=== PATIENT | female | born 1960 | race Hispanic/Latino ===

== ENCOUNTER 2017-12-17 12:14 | Emergency (ER) | payer BC ==
[2017-12-17 12:14] VITALS: BMI 28.2
[2017-12-17 12:34] VITALS: RESP 18; TEMP 97.9; O2SAT 97
[2017-12-17] MEDS ORDERED: Sodium Chloride 0.9% 1,000 ML IV STA (12:46)
[2017-12-17] MEDS ORDERED: DiphenhydrAMINE 50 mg/ml Inj IVP STA (12:46)
--- NOTE | 2017-12-17 13:48 | ED PDOC ---
Arrival/HPI - General Chief Complaint: Headache Time Seen by Provider: 12/17/17 12:44 Historian: Patient - History of Present Illness Narrative History of Present Illness (Text): 12/17/17 13:47 A 57 year old female, whose past medical history includes chronic migraine, 2 mm cerebral aneurysm, presents to the emergency department complaining of neck pain and right sided headache. Patient follows up with Dr. Bond and headache physician with Dr. Paz (in [facility]), who she saw yesterday for a deep tissue massage, and after, neck pain began radiating to the right side of head, phonophobia, photophobia, no focal neurological deficits or rashes. Patient denies any rash or any other complaints at this time.Pt states that the headasche was gradual onset , 12/17/17 15:54 Time/Duration: Other (yesterday) Symptom Onset: Sudden Symptom Course: Unchanged Activities at Onset: Rest Past Medical History - Provider Review Nursing Documentation Reviewed: Yes - Infectious Disease Hx of Infectious Diseases: None - Tetanus Immunization Tetanus Immunization: Unknown - Neurological HX Cerebrovascular Accident: Yes Other/Comment: aneurysm 2mm - Renal Other/Comment: solitary kidney - Endocrine/Metabolic Hx Hypothyroidism: Yes - Gastrointestinal Hx Gastroesophageal Reflux: Yes (barrets esoph treated with by pass) - Psychiatric Hx Depression: No Hx Emotional Abuse: No Hx Physical Abuse: No Hx Substance Use: No - Surgical History Hx Cholecystectomy: Yes Hx Gastric Bypass Surgery: Yes Hx Hysterectomy: Yes Hx Orthopedic Surgery: Yes (knee) Other/Comment: gastric bypass. nephrectomy. cyst removal. torn meniscus - Anesthesia Hx Anesthesia: Yes Hx Anesthesia Reactions: No Hx Malignant Hyperthermia: No - Suicidal Assessment Feels Threatened In Home Enviroment: No Family/Social History - Physician Review Nursing Documentation Reviewed: Yes Family/Social History: No Known Family HX Smoking Status: Never Smoked Hx Alcohol Use: No Hx Substance Use: No Hx Substance Use Treatment: No Allergies/Home Meds Allergies/Adverse Reactions: Allergies codeine Allergy (Verified 12/17/17 12:18) SWELLING Penicillins Allergy (Verified 12/17/17 12:18) RASH Home Medications: Home Meds Medication Instructions Recorded Confirmed Clopidogrel [Plavix] 1 tab PO DAILY 12/17/17 12/17/17 Levothyroxine [Synthroid] 1 tab PO DAILY 12/17/17 12/17/17 Review of Systems - Physician Review All systems were reviewed & negative as marked: Yes - Review of Systems Eyes: Photophobia Musculoskeletal: Neck Pain Skin: absent: Rash Neurological: Headache (right sided) Psychiatric: Other (phonophobia) Physical Exam Vital Signs Reviewed: Yes Vital Signs Temp Pulse Resp BP Pulse Ox 12/17/17 14:37 74 18 138/86 97 12/17/17 12:34 97.9 F 77 18 141/95 H 97 Temperature: Afebrile Blood Pressure: Hypertensive Pulse: Regular Respiratory Rate: Normal Appearance: Positive for: Well-Appearing, Non-Toxic, Comfortable Pain Distress: None Mental Status: Positive for: Alert and Oriented X 3 - Systems Exam Head: Present: Atraumatic, Normocephalic Pupils: Present: PERRL Extroacular Muscles: Present: EOMI Conjunctiva: Present: Normal Mouth: Present: Moist Mucous Membranes Neck: Present: Normal Range of Motion Respiratory/Chest: Present: Clear to Auscultation, Good Air Exchange. No: Respiratory Distress, Accessory Muscle Use Cardiovascular: Present: Regular Rate and Rhythm, Normal S1, S2. No: Murmurs Abdomen: Present: Normal Bowel Sounds. No: Tenderness, Distention, Peritoneal Signs Back: Present: Normal Inspection Upper Extremity: Present: Normal Inspection. No: Cyanosis, Edema Lower Extremity: Present: Normal Inspection. No: Edema Neurological: Present: GCS=15, CN II-XII Intact, Speech Normal Skin: Present: Warm, Dry, Normal Color. No: Rashes Psychiatric: Present: Alert, Oriented x 3, Normal Insight, Normal Concentration Medical Decision Making ED Course and Treatment: 12/17/17 13:45 Impression: A 57 year old female with neck pain, right sided headache, photophobia and phonophobia. Plan: -- Tylenol, Decadron, Benadryl, Reglan, IV fluids -- Reassess and disposition Prior Visits: Notes and results from previous visits were reviewed. Patient was last seen in the emergency department on 03/07/14 for evaluation of headache, photophobia and phonophobia. Progress Notes: - Medication Orders Current Medication Orders: Discontinued Medications Acetaminophen (Tylenol 325mg Tab) 650 mg PO STAT STA Stop: 12/17/17 12:47 Last Admin: 12/17/17 13:22 Dose: 650 mg MAR Pain/Vitals Document 12/17/17 13:22 RG (Rec: 12/17/17 13:22 RG [id number]) Pain Reassessment Is This A Pain ReAssessment? Yes Dexamethasone (Decadron Inj) 10 mg IVP STAT STA Stop: 12/17/17 12:47 Last Admin: 12/17/17 13:32 Dose: 10 mg IVP Administration Document 12/17/17 13:32 RG (Rec: 12/17/17 15:32 RG [id number]) Charges for Administration # of IVP Administrations 1 Diphenhydramine HCl (Benadryl) 25 mg IVP STAT STA Stop: 12/17/17 12:47 Last Admin: 12/17/17 13:30 Dose: 25 mg IVP Administration Document 12/17/17 13:30 RG (Rec: 12/17/17 15:32 RG [id number]) Charges for Administration # of IVP Administrations 1 Sodium Chloride (Sodium Chloride 0.9%) 1,000 mls @ 999 mls/hr IV .Q1H1M STA Stop: 12/17/17 13:46 Last Admin: 12/17/17 13:30 Dose: 999 mls/hr eMAR Start Stop Document 12/17/17 13:30 RG (Rec: 12/17/17 15:32 RG [id number]) Intravenous Solution Start Date 12/17/17 Start Time 13:30 Metoclopramide HCl (Reglan) 20 mg IVP STAT STA Stop: 12/17/17 12:46 Last Admin: 12/17/17 13:40 Dose: 20 mg IVP Administration Document 12/17/17 13:40 RG (Rec: 12/17/17 15:32 [id number] Charges for Administration # of IVP Administrations 1 - Scribe Statement The provider has reviewed the documentation as recorded by the Rylee Klein Provider Scribe Attestation: All medical record entries made by the Scribe were at my direction and personally dictated by me. I have reviewed the chart and agree that the record accurately reflects my personal performance of the history, physical exam, medical decision making, and the department course for this patient. I have also personally directed, reviewed, and agree with the discharge instructions and disposition. Disposition/Present on Arrival - Present on Arrival Any Indicators Present on Arrival: No History of DVT/PE: No History of Uncontrolled Diabetes: No Urinary Catheter: No History of Decub. Ulcer: No History Surgical Site Infection Following: None - Disposition Have Diagnosis and Disposition been Completed?: Yes Diagnosis: Status migrainosus Disposition: HOME/ ROUTINE Disposition Time: 15:53 Patient Plan: Discharge Patient Problems: Current Active Problems Problem Status Onset Status migrainosus Acute Condition: GOOD Discharge Instructions (ExitCare): Migraine Headache (ED) Print Language: NICARAGUAN Additional Instructions: Maintain a headache diary documenting the what/where/when/how/associated factors with your headaches and then follow this up with your specialist whom will enjoy the extra diagnostic cues. Return for any worsening symptoms. Prescriptions: Acetaminophen/Butalbital/Caf [Fioricet] 1 tab PO Q8 PRN #20 tab PRN Reason: Headache Referrals: Germain Valle MD [Primary Care Provider] - Follow up with primary Forms: [employer] (Austrian)
[2017-12-17 16:10] VITALS: BP 135/78; PULSE 69
== END 2017-12-17 16:16 | disposition home or self-care (01) ==
LOC: ED 12:14
DX: G43.901 Migraine, unspecified, not intractable, with status migrainosus (principal); E03.9 Hypothyroidism, unspecified; Z86.73 Personal history of transient ischemic attack (TIA), and cerebral infarction without residual deficits; Z98.84 Bariatric surgery status
CPT/HCPCS: 96374; 96375; 99285; J1100; J1200; J2765; J7040

== ENCOUNTER 2017-12-27 11:59 | Inpatient (IN) | payer BC ==
[2017-12-27] MEDS ORDERED: Sodium Chloride 0.9% 1,000 ML IV SCH (12:45)
--- NOTE | 2017-12-27 12:45 | ED PDOC ---
Arrival/HPI - History of Present Illness Symptom Course: Intermittent Quality: Aching Context: Other (movement of head) <Seema Mcneal - Last Filed: 12/27/17 18:26> <Kedar Hill - Last Filed: 12/27/17 19:12> - General Chief Complaint: Medical Clearance Time Seen by Provider: 12/27/17 12:01 - History of Present Illness Narrative History of Present Illness (Text): 12/27/17 12:42 CC: neck pain Patient presents for admission for possible discitis. Patient states her doctor told her to come in due to MRI results done 12/26 which shows C6-C7 minimal increased signal and minimal marrow edema. Patient had a right root canal 6 weeks ago and started having right sided neck pain and currently has tenderness of C6-C7 spinal tenderness with movement. Patient denies numbness, weakness, tingling of upper and lower extremities. PMH: sinusitis (02/2017), chronic migraine, 2 mm cerebral aneurysm, presents to the emergency department complaining of neck pain and right sided headache PMD: Dr. Leonard Bond and headache physician with Dr. Paz ([facility] (Seema Mcneal) Past Medical History - Provider Review Nursing Documentation Reviewed: Yes - Infectious Disease Hx of Infectious Diseases: None - Tetanus Immunization Tetanus Immunization: Unknown - Cardiac Hx Cardiac Disorders: Yes - Pulmonary Hx Respiratory Disorders: No - Neurological Hx Neurological Disorder: Yes HX Cerebrovascular Accident: Yes Other/Comment: aneurysm 2mm - dx in November 2017. CVA in past with some minimal L sided weakness - HEENT Hx HEENT Disorder: Yes Other/Comment: glasses - Renal Hx Renal Disorder: Yes Other/Comment: R kidney only, L was removed in 2009 - Endocrine/Metabolic Hx Endocrine Disorders: Yes Hx Hypothyroidism: Yes - Hematological/Oncological Hx Blood Disorders: No - Integumentary Hx Dermatological Disorder: No - Musculoskeletal/Rheumatological Hx Musculoskeletal Disorders: Yes Other/Comment: neck pain - Gastrointestinal Hx Gastrointestinal Disorders: Yes Hx Gastroesophageal Reflux: Yes (barrets esoph treated with by pass) - Genitourinary/Gynecological Hx Genitourinary Disorders: No - Psychiatric Hx Psychophysiologic Disorder: No Hx Depression: No Hx Emotional Abuse: No Hx Physical Abuse: No Hx Substance Use: No - Surgical History Hx Cholecystectomy: Yes Hx Gastric Bypass Surgery: Yes Hx Hysterectomy: Yes Hx Orthopedic Surgery: Yes (knee) Other/Comment: gastric bypass. L kidney removed, nephrectomy. cyst removal. torn meniscus - Anesthesia Hx Anesthesia: Yes Hx Anesthesia Reactions: No Hx Malignant Hyperthermia: No - Suicidal Assessment Feels Threatened In Home Enviroment: No <Seema Mcneal - Last Filed: 12/27/17 18:26> - Provider Review Nursing Documentation Reviewed: Yes - Travel History Have you recently traveled outside [place] w/in the past 3 mons?: No <Kedar Hill - Last Filed: 12/27/17 19:12> Family/Social History - Physician Review Nursing Documentation Reviewed: Yes Smoking Status: Never Smoked Hx Alcohol Use: No Hx Substance Use: No Hx Substance Use Treatment: No <Seema Mcneal - Last Filed: 12/27/17 18:26> - Physician Review Nursing Documentation Reviewed: Yes Family/Social History: No Known Family HX <Kedar Hill - Last Filed: 12/27/17 19:12> Allergies/Home Meds <Seema Mcneal - Last Filed: 12/27/17 18:26> <Kedar Hill - Last Filed: 12/27/17 19:12> Allergies/Adverse Reactions: Allergies codeine Allergy (Verified 12/27/17 12:09) SWELLING Penicillins Allergy (Verified 12/27/17 12:09) RASH Home Medications: Home Meds Medication Instructions Recorded Confirmed Clopidogrel [Plavix] 1 tab PO DAILY 12/17/17 12/27/17 Levothyroxine [Synthroid] 1 tab PO DAILY 12/17/17 12/27/17 Lansoprazole [Prevacid] 30 mg PO BID 12/27/17 12/27/17 Review of Systems - Physician Review All systems were reviewed & negative as marked: Yes - Review of Systems Constitutional: Normal. absent: Fatigue, Weight Change Eyes: Normal. absent: Vision Changes, Photophobia ENT: Normal. absent: Hearing Changes, Tinnitus, TMJ Pain Respiratory: Normal. absent: SOB, Cough, Sputum Cardiovascular: Normal. absent: Chest Pain, Palpitations, Edema Gastrointestinal: absent: Abdominal Pain, Stool Changes, Constipation Genitourinary Female: absent: Dysuria, Frequency, Hematuria Musculoskeletal: Neck Pain. absent: Arthralgias, Back Pain, Joint Swelling Skin: absent: Rash, Pruritis, Skin Lesions Neurological: absent: Headache, Dizziness, Focal Weakness, Gait Changes, Speech Changes, Facial Droop, Disequilibrium Endocrine: absent: Diaphoresis, Polyuria, Polydipsia Hemo/Lymphatic: absent: Adenopathy, Easy Bleeding Psychiatric: absent: Anxiety, Depression, Suicidal Ideation <Eng,Seema - Last Filed: 12/27/17 18:26> Physical Exam Vital Signs Reviewed: Yes Temperature: Afebrile Blood Pressure: Normal Pulse: Regular Respiratory Rate: Normal Appearance: Positive for: Comfortable Mental Status: Positive for: Alert and Oriented X 3 - Systems Exam Head: Present: Atraumatic, Normocephalic Pupils: Present: PERRL Extroacular Muscles: Present: EOMI Conjunctiva: Present: Normal Mouth: Present: Moist Mucous Membranes Pharnyx: Present: Normal. No: ERYTHEMA, EXUDATE, Uvular Deviation, Muffled/ Hoarse Voice Nose (External): Present: Atraumatic. No: Abrasion, Contusion, Laceration Neck: Present: Normal Range of Motion, MIDLINE TENDERNESS (C6-T1), Paraspinal Tenderness (C6-T1), Trachea Midline. No: Meningeal Signs, JVD, Lymphadenopathy Respiratory/Chest: Present: Clear to Auscultation, Good Air Exchange. No: Respiratory Distress, Accessory Muscle Use Cardiovascular: Present: Regular Rate and Rhythm, Normal S1, S2. No: Murmurs Abdomen: Present: Normal Bowel Sounds. No: Tenderness, Distention, Peritoneal Signs Upper Extremity: Present: Normal Inspection, Normal ROM, Neurovascularly Intact , Capillary Refill < 2s. No: Cyanosis, Edema, Swelling, Erythema Lower Extremity: Present: Normal Inspection, NORMAL PULSES, Normal ROM, Neurovascularly Intact, Capillary Refill < 2 s. No: Edema, Tenderness Skin: Present: Warm, Dry, Normal Color. No: Rashes Lymphatic: No: Cervical Adenopathy Psychiatric: Present: Alert, Oriented x 3, Normal Insight, Normal Concentration <Eng,Seema - Last Filed: 12/27/17 18:26> Vital Signs Temp Pulse Resp BP Pulse Ox 12/27/17 17:16 98.1 F 76 18 123/63 100 12/27/17 12:42 79 18 138/74 98 12/27/17 12:10 97.9 F 88 14 142/88 98 Medical Decision Making Reassessment Condition: Unchanged - Lab Interpretations I have reviewed the lab results: Yes - EKG Interpretation Interpreted by ED Physician: Yes (86bpm @ NSR) Type: 12 lead EKG <Seema Mcneal - Last Filed: 12/27/17 18:26> <Kedar Hill - Last Filed: 12/27/17 19:12> ED Course and Treatment: CBC CMP, Mg, Ph ESR, CRP Procalcitonin VBG Shock blood cultures Tylenol for pain IVF NS @100cc/hr 12/27/17 16:[address] Valle's covering doctor on the phone at 12/27/17 04:15. Recommended blood cultures, ESR, CRP and follow up with Dr. Bond ( Neurologist) for headaches MRI shows degenerative disc changes, narrowing of C6-C7 with edema. 12/27/17 17:[address] Bond: would like to have patient stay and see a neurosurgeon because "bilateral epidural fluid collections seen on MRI without contrast and prevertebral fluid collection indicates possible abscess" and to have an MRI with contrast 12/27/17 18:25 (Seema Mcneal) 12/27/17 17:38 patient with neck pain, concerning findings from MRI wo cervical spine 12/26/17 for questionable b/l epidural fluid collections, questionable prevertebral fluid collection, it is possible these findings represent discitis, it is more likely that these findings are degenerative changes. wbc 6.3, lactic acid 1.2, INR 1.00, CRP 7.33, ESR 29, d/w initially Dr. Valle's office Dr. Cerda, but later d/w Dr. Reddy who stated no antibiotics at this time and to discuss with neurosurgery and plan MRI with iv contrast for clarification. (Dr. Hill) 12/27/17 17:44 12/27/17 18:[address] Greene neurosurgery who stated he will review the MRI wo contrast cervical spine images and make a determination and call back to the ED. 12/27/17 18:[address] Greene neurosurgery who stated no clear sign of fluid collections, likely related to degenerative disc disease, can admit to Dr. Reddy, get MRI w contrast of the cervical spine tomorrow and neurosurgical evaluation in the am. 12/27/17 19:10 d/w Dr. Reddy who stated order MRI w iv contrast c-spine now, ivf hydration, diet, admit to med-surgery and she will fu MRI spine results, neurosurgery consultation. pt stated hysterectomy and no menstrual periods, didn't want test at this time. (Keadr Hill) - Lab Interpretations Lab Results: 12/27/17 12:40 12/27/17 12:40 Lab Results 12/27/17 12:40: PT 11.5, INR 1.00, APTT 33.9 12/27/17 12:40: WBC 6.3, RBC 4.75, Hgb 13.9, Hct 42.7, MCV 89.9, MCH 29.3, MCHC 32.6, RDW 13.6, Plt Count 243, MPV 9.8, Gran % 65.2, Lymph % (Auto) 28.1, Kershaw % (Auto) 6.0, Eos % (Auto) 0.5 L, Baso % (Auto) 0.2, Gran # 4.14, Lymph # 1.8, Kershaw # 0.4, Eos # 0.0, Baso # 0.01, ESR 29 H 12/27/17 12:40: Chloride 105, Sodium 143, Potassium 4.3, Carbon Dioxide 28, Anion Gap 13, BUN 20, Creatinine 0.9, Est GFR ( Amer) > 60, Est GFR (Non- Af Amer) > 60, Random Glucose 92, Calcium 10.4, Magnesium 2.2, Total Bilirubin 0.4, AST 34, ALT 39, Alkaline Phosphatase 106, Troponin I < 0.01, Total Protein 7.6, Albumin 4.2, Globulin 3.4, Albumin/Globulin Ratio 1.3, Prolactin Pending 12/27/17 12:40: C-React Prot High Sens 7.33 H 12/27/17 12:40: pO2 62 H, VBG pH 7.33, VBG pCO2 51.0, VBG HCO3 26.9, VBG Total CO2 28.5 H, VBG O2 Sat (Calc) 94.1 H, VBG Base Excess 0.1, Chloride 106.0, Glucose 95, Lactate 1.2, FiO2 21 12/27/17 12:40 12/27/17 12:40 Lab Results 12/27/17 12:40: PT 11.5, INR 1.00, APTT 33.9 12/27/17 12:40: WBC 6.3, RBC 4.75, Hgb 13.9, Hct 42.7, MCV 89.9, MCH 29.3, MCHC 32.6, RDW 13.6, Plt Count 243, MPV 9.8, Gran % 65.2, Lymph % (Auto) 28.1, Kershaw % (Auto) 6.0, Eos % (Auto) 0.5 L, Baso % (Auto) 0.2, Gran # 4.14, Lymph # 1.8, Kershaw # 0.4, Eos # 0.0, Baso # 0.01, ESR 29 H 12/27/17 12:40: Chloride 105, Sodium 143, Potassium 4.3, Carbon Dioxide 28, Anion Gap 13, BUN 20, Creatinine 0.9, Est GFR ( Amer) > 60, Est GFR (Non- Af Amer) > 60, Random Glucose 92, Calcium 10.4, Magnesium 2.2, Total Bilirubin 0.4, AST 34, ALT 39, Alkaline Phosphatase 106, Troponin I < 0.01, Total Protein 7.6, Albumin 4.2, Globulin 3.4, Albumin/Globulin Ratio 1.3, Prolactin Pending 12/27/17 12:40: C-React Prot High Sens 7.33 H 12/27/17 12:40: pO2 62 H, VBG pH 7.33, VBG pCO2 51.0, VBG HCO3 26.9, VBG Total CO2 28.5 H, VBG O2 Sat (Calc) 94.1 H, VBG Base Excess 0.1, Chloride 106.0, Glucose 95, Lactate 1.2, FiO2 21 CRP 7.33, ESR 29, Lactate 1.2 (Eng,Seema) - RAD Interpretation Radiology Orders: 12/27/17 19:01 SPINAL CANAL CERVICAL W/ CONT [MRI] Stat - Medication Orders Current Medication Orders: Clopidogrel Bisulfate (Plavix) 75 mg PO DAILY [facility]AN Sodium Chloride (Sodium Chloride 0.9%) 1,000 mls @ 100 mls/hr IV .Q10H [facility] Last Admin: 12/27/17 12:47 Dose: 100 mls/hr eMAR Start Stop Document 12/27/17 12:47 HI (Rec: 12/27/17 12:48 HI [id number]) Intravenous Solution Start Date 12/27/17 Start Time 12:48 Levothyroxine Sodium (Synthroid) 25 mcg PO ACB [facility]AR[facility]AN Last Admin: 12/27/17 17:59 Dose: Not Given Non-Admin Reason: Patient Refused Discontinued Medications Acetaminophen (Tylenol 325mg Tab) 650 mg PO STAT STA Stop: 12/27/17 12:36 Last Admin: 12/27/17 12:47 Dose: 650 mg Re-Assess: MAR Pain/Vitals Document 12/27/17 13:47 HI (Rec: 12/27/17 17:49 HI [id number]) Pain Reassessment Is This A Pain ReAssessment? Yes Sleep Is patient sleeping during reassessment? No Presence of Pain Presence of Pain No Metoclopramide HCl (Reglan) 10 mg IVP STAT STA Stop: 12/27/17 17:52 Last Admin: 12/27/17 18:00 Dose: 10 mg IVP Administration Document 12/27/17 18:00 HI (Rec: 12/27/17 18:00 HI [id number]) Charges for Administration # of IVP Administrations 1 Disposition/Present on Arrival - Present on Arrival Any Indicators Present on Arrival: No History of DVT/PE: No History of Uncontrolled Diabetes: No Urinary Catheter: No History of Decub. Ulcer: No History Surgical Site Infection Following: None - Disposition Have Diagnosis and Disposition been Completed?: Yes Disposition Time: 17:55 Patient Plan: Observation <Seema Mcneal - Last Filed: 12/27/17 18:26> <Kedar Hill - Last Filed: 12/27/17 19:12> - Disposition Diagnosis: Headache, Discitis Disposition: HOSPITALIZED Patient Problems: Current Active Problems Problem Status Onset Headache Acute Discitis Acute Condition: STABLE Forms: POK[employer] (Cameroonian)
[2017-12-27 13:09] LABS: BASO # 0.01 K/mm3 (0.0-2.0); BASO % 0.2 % (0.0-3.0); EOS % 0.5 % (1.5-5.0); GRAN # 4.14 (1.4-6.5); GRAN % 65.2 % (50.0-68.0); HEMOGLOBIN 13.9 g/dL (12.0-16.0); LYMPH # 1.8 (1.2-3.4); LYMPH % 28.1 % (22.0-35.0); MEAN CELL VOLUME 89.9 fl (80.0-105.0); MEAN CORPUSCULAR HEMOGLOBIN 29.3 pg (25.0-35.0); MEAN CORPUSCULAR HGB CONC 32.6 g/dl (31.0-37.0); MEAN PLATELET VOLUME 9.8 fl (7.0-11.0); MONO # 0.4 (0.1-0.6); RBC 4.75 10^6/uL (3.5-6.1); RED CELL DISTRIBUTION WIDTH 13.6 % (11.5-14.5); WHITE BLOOD COUNT 6.3 10^3/ul (4.5-11.0)
[2017-12-27 13:12] LABS: PARTIAL THROMBOPLASTIN TIME 33.9 Seconds (25.1-36.5); PROTHROMBIN TIME 11.5 SECONDS (9.4-12.5)
[2017-12-27 13:18] LABS: VENOUS BLOOD PH 7.33 (7.32-7.43)
[2017-12-27 13:19] LABS: VENOUS BLOOD GAS BASE EXCESS 0.1 mmol/L (0.0-2.0); VENOUS BLOOD GAS PO2 62 mm/Hg (30-55)
[2017-12-27 13:20] LABS: VENOUS BLOOD FIO2 21 %
[2017-12-27 13:40] LABS: ALB/GLOB RATIO 1.3 (1.1-1.8); ALBUMIN 4.2 g/dL (3.0-4.8); ALT/SGPT 39 U/L (7-56); AST/SGOT 34 U/L (14-36); BLOOD UREA NITROGEN 20 mg/dL (7-21); CALCIUM 10.4 mg/dL (8.4-10.5); GFR AFRICAN-AMERICAN > 60; GFR NON-AFRICAN AMERICAN > 60; MAGNESIUM 2.2 mg/dL (1.7-2.2)
[2017-12-27 13:47] LABS: TROPONIN I < 0.01 ng/mL
[2017-12-27] MEDS: Levothyroxine 25 MCG TAB PO SCH (17:59)
[2017-12-27 22:16] LABS: PROLACTIN 7.4 ng/mL (3.0-18.9)
[2017-12-27 23:15] VITALS: BMI 29.0
[2017-12-28] MEDS ORDERED: Pantoprazole 40 mg EC Tab PO SCH (06:30)
[2017-12-28] MEDS: Levothyroxine 25 MCG TAB PO SCH (06:56)
[2017-12-28 10:47] VITALS: RESP 20
--- NOTE | 2017-12-28 12:18 | CP.PCM.CON ---
History of Present Illness - History of Present Illness History of Present Illness: dictated equivical for cervical discitis agree with rec for gadolidium MRI Past Patient History - Infectious Disease Hx of Infectious Diseases: None - Tetanus Immunizations Tetanus Immunization: Unknown - Past Social History Smoking Status: Never Smoked - CARDIAC Hx Cardiac Disorders: Yes - PULMONARY Hx Respiratory Disorders: No - NEUROLOGICAL Hx Neurological Disorder: No - HEENT Hx HEENT Problems: No - RENAL Hx Chronic Kidney Disease: Yes Other/Comment: Only has Right kidney, left removed 2010. - ENDOCRINE/METABOLIC Hx Endocrine Disorders: Yes Hx Hypothyroidism: Yes - HEMATOLOGICAL/ONCOLOGICAL Hx Blood Disorders: No - INTEGUMENTARY Hx Dermatological Problems: No - MUSCULOSKELETAL/RHEUMATOLOGICAL Hx Musculoskeletal Disorders: Yes Hx Arthritis: Yes Hx Falls: No - GASTROINTESTINAL Hx Gastrointestinal Disorders: Yes Hx Gastroesophageal Reflux: Yes - GENITOURINARY/GYNECOLOGICAL Hx Genitourinary Disorders: No - PSYCHIATRIC Hx Psychophysiologic Disorder: No - SURGICAL HISTORY Hx Surgeries: Yes Hx Gastric Bypass Surgery: Yes Hx Hysterectomy: Yes - ANESTHESIA Hx Anesthesia: Yes Hx Anesthesia Reactions: No Hx Malignant Hyperthermia: No Meds Allergies/Adverse Reactions: Allergies Allergy/AdvReac Type Severity Reaction Status Date / Time codeine Allergy SWELLING Verified 12/27/17 12:09 Penicillins Allergy RASH Verified 12/27/17 12:09 - Medications Medications: Current Medications Acetaminophen (Tylenol 325mg Tab) 650 mg PO Q6H PRN PRN Reason: Fever >100.4 F Last Admin: 12/28/17 09:52 Dose: 650 mg Clopidogrel Bisulfate (Plavix) 75 mg PO DAILY [facility] Last Admin: 12/28/17 09:52 Dose: 75 mg Sodium Chloride (Sodium Chloride 0.9%) 1,000 mls @ 100 mls/hr IV .Q10H [facility] Last Admin: 12/27/17 12:47 Dose: 100 mls/hr Sodium Chloride (Sodium Chloride 0.9%) 1,000 mls @ 100 mls/hr IV .Q10H [facility] Levothyroxine Sodium (Synthroid) 25 mcg PO ACB [facility] Last Admin: 12/28/17 06:56 Dose: 25 mcg Meloxicam (Mobic) 15 mg PO DAILY [facility] Last Admin: 12/28/17 09:52 Dose: 15 mg Pantoprazole Sodium (Protonix Ec Tab) 40 mg PO 0630 [facility] Last Admin: 12/28/17 05:49 Dose: Not Given Results - Vital Signs Recent Vital Signs: Last Vital Signs Temp 97.9 F 12/28/17 06:00 Pulse 62 12/28/17 06:00 Resp 20 12/28/17 06:00 BP 105/58 L 12/28/17 06:00 Pulse Ox 100 12/28/17 06:00 - Labs Result Diagrams: 12/27/17 12:40 12/27/17 12:40 Labs: Laboratory Results - last 24 hr 12/27/17 20:28 Influenza Typ A,B (EIA) Negative for flu a/b
[2017-12-28] MEDS ORDERED: Levothyroxine 50 MCG TAB PO SCH (12:44)
--- NOTE | 2017-12-28 13:14 | CARD ---
APPROVED REPORT EKG Measurement Heart [id number] <Conclusion> Normal sinus rhythm Possible Left atrial enlargement
[2017-12-28] MEDS: Sodium Chloride 0.9% 1,000 ML IV SCH (17:38)
[2017-12-28] MEDS ORDERED: Gadodiamide 287 MG/ML VIAL (15ML) IV ONE (17:56)
--- NOTE | 2017-12-28 19:54 | MRI ---
EXAM: MR Cervical Spine With Intravenous Contrast EXAM DATE/TIME: 12/28/2017 12:11 PM CLINICAL HISTORY: The patient age is 57 years old and is female; Abnormal findings; Abnormal xray or scan of neck and cervical spine; Patient HX: F/u to a prior mri cspine w/o done on 12/26. Was also read by rolly. ; Additional info: R/O discitis Facility exam id and description: Mri [facility] spinal canal cervical w/ cont TECHNIQUE: Magnetic resonance images of the cervical spine with intravenous contrast in multiple planes. CONTRAST: 15 mL of Omniscan administered intravenously. COMPARISON: MR - SPINAL CANAL CERVICAL W/O CONT 2017-12-26 16:27 FINDINGS: Limitations: Degenerative disc disease is noted at multiple cervical levels, with a decrease in the T2 signal intensity of the discs as well as disc bulge/osteophyte complexes. Evaluation of the neural foramina is limited by the absence of an axial T2-weighted sequence. Refer to the previous MRI report for discussion of degenerative changes. Vertebrae: Modic endplate changes are visualized at the C3-4 level. The cervical vertebral bodies are normal in height, without abnormal subluxation. Marrow: Enhancing edema is visualized within the bone marrow adjacent to the endplates at the C6-7 level. There is minimal increased signal intensity within the disc as well. These findings can be reactive to degenerative disc disease, although discitis with osteomyelitis is within the differential. These findings are stable. Epidural space: No definitive epidural or paravertebral fluid collections are identified. Spinal cord: There are no foci of abnormal T2 signal hyperintensity within the cervical spinal cord. Soft tissues: There is mild increased signal intensity in the prevertebral region of the lower cervical spine. When correlated with axial images, this appears to be associated with the esophagus. DISCS/SPINAL CANAL/NEURAL FORAMINA: C2-C3: There is no significant narrowing of the thecal sac or neural foramina. C3-C4: There is minimal narrowing of the thecal sac. A decrease of disc height is visualized at this level. Bilateral neural foraminal narrowing is visualized. C4-C5: There is no significant narrowing of the thecal sac or neural foramina. C5-C6: There is mild narrowing of the thecal sac. Bilateral neural foraminal narrowing is visualized. There is a decrease in disc height. C6-C7: There is a posterior disc protrusion causing mild to moderate narrowing of the thecal sac. Bilateral neural foraminal narrowing is visualized. There is a decrease in disc height. C7-T1: There is no significant narrowing of the thecal sac or neural foramina. Other findings: There is no evidence for a Chiari malformation. IMPRESSION: 1. Enhancing edema is visualized within the bone marrow adjacent to the endplates at the C6-7 level. There is minimal increased signal intensity within the disc as well. These findings can be reactive to degenerative disc disease, although discitis with osteomyelitis is within the differential. These findings are stable. Clinical correlation is recommended. 2. No definitive epidural or paravertebral fluid collections are identified. 3. Degenerative disc disease is noted at multiple cervical levels. Refer to the previous MRI report for discussion of degenerative changes. 4. Mild to moderate narrowing of the thecal sac is visualized at C6-7, with a posterior disc protrusion. There is mild narrowing of the thecal sac at C5-6, with minimal narrowing of the thecal sac at C3-4. 5. Additional findings described above.
--- NOTE | 2017-12-29 06:16 | HP ---
HISTORY OF PRESENT ILLNESS: The patient is a 57-year-old, who came to the emergency room because of increasing neck pain. The patient states almost a month ago, she had some dental workup done and she noticed since then her back of the neck has been hurting and got worse yesterday to the point she was unable to turn her neck around. Denies any fever or chills. No history of nausea or vomiting. She does complain of decreased appetite. No history of chills. The patient had MRI done that showed some fluid in the cervical spine area, so the patient is being admitted for further investigation to rule out osteomyelitis versus inflammatory changes. PAST MEDICAL HISTORY: 1. She has significant past medical history of stroke at the age of 40. The patient states that she had hysterectomy done. She was on estrogen placement. Because of that, she got stroke. Since then, she had been on blood thinners. 2. History of hysterectomy. 3. History of Caldwell esophagus, requiring esophageal resection surgery. 4. 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 ALLERGIES: SHE IS ALLERGIC TO CODEINE AND PENICILLIN. SOCIAL HISTORY: She is , lives with her , . Denies smoking or drinking. Only drinks wine socially. REVIEW OF SYSTEMS: Significant for neck pain, although seems to be doing a little better today. PHYSICAL EXAMINATION: GENERAL: She is awake, alert, and oriented. She has paraspinal discomfort in the lower cervical region. LUNGS: Bilateral good air flow. No rhonchi or crackles. HEART: S1 and S2, audible. ABDOMEN: Soft. Nontender. No rebound. No guarding. NEUROLOGICAL: She is awake, alert, oriented and communicative. No focal deficits. VITAL SIGNS: She is afebrile, pulse 67, respirations 20, and blood pressure 128/74. LABORATORY EXAM: WBC 6.3, hemoglobin 13, hematocrit 42, platelets of 243, ESR of 29. Chemistry, sodium 143, potassium 4.3, chloride 105, CO2 of 28, BUN 20, creatinine 0.9, blood sugar of 92. LFTs are within normal limits. Procalcitonin is 0.05. Flu test is negative. She had cervical spine MRI done that shows fluid in the paraspinal area in the C5 and C6. ASSESSMENT AND PLAN: Intractable neck pain, infectious versus inflammatory. The patient has C-spine without contrast that shows fluid, differential of diskitis versus infectious. Since the patient has history of recent dental work done, we will follow up blood cultures. I will order for echocardiogram and Infectious Disease consult with Dr. Moraes has been requested. We will follow up and start her on IV fluids and get her echocardiogram to rule out vegetation and neurosurgeon is also following the patient. Sunni Reddy MD
[2017-12-29] MEDS: Sodium Chloride 0.9% 1,000 ML IV SCH (06:30)
--- NOTE | 2017-12-29 08:26 | CON ---
DATE: 12/28/2017 HISTORY OF PRESENT ILLNESS: This is a 57-year-old lady really with no history of neck problems, started to develop neck pain with occipital cervical headaches several weeks ago. She is fairly clear that all started around the time she had a root canal procedure performed. She denies any neurological symptoms. There is no radiating pain, no radicular component. She has no bowel dysfunction, no weakness, no numbness, etc. She also denies any fevers. Through the course of this, her headache, she underwent an MRI of the brain, which showed a small 2 mm aneurysm. She saw aneurysm specialist Dr. Paz, who recommended expected management. Symptoms continued, ultimately she had MRI of the spine, which was read as questionable C6-C7 diskitis. She was sent to ER last night where she was further worked up. Interviewing her today, again she confirms all of the above really no symptoms, other than the neck pain and the occipital cervical headaches. PAST MEDICAL HISTORY: Significant for having had a stroke with some very transient left-sided weakness 17 years ago. She has one kidney. The rest of her past medical history, medications, allergies, social history, etc. reviewed in the EMR. PHYSICAL EXAMINATION: GENERAL: She is quite awake and alert. Speech and mental status are normal. Cranial nerves were intact. She has 5/5 strength in all the extremities. Sensory exam is intact to light touch, excellent proprioception bilaterally. Reflexes are 2+. Valle's negative bilaterally. Plantars are downgoing. Gait was not tested. She does have 10/10 palpation of the lower cervical spine, however, her range of motion is actually not too bad and does not bring on more pain. The MRI of the cervical spine is again is a equivocal study, there is what seems to be collapse more likely degenerative at C6-C7 disk. There is some central stenosis. There is some eccentricity to the right. There is a hint that this could possibly diskitis, but it certainly could be degenerative as well. She is afebrile. Her white blood cell count is normal. C-reactive protein is 7.33 and sed rate is 29. IMPRESSION AND PLAN: This is very equivocal case on the one hand, she has a relatively insidious to sudden onset of this neck pain with associated headaches around the time of this dental procedure. She also has a mildly elevated C-reactive protein and ESR. On the other hand, she is afebrile. She has a normal white count. She has no shift and the sed rate and C-reactive protein is certainly way lower than atypical diskitis. She also has no evidence of being immunocompromised. Therefore, as this is a very equivocal case, we certainly do not want to miss an early osteomyelitis/diskitis. I would agree with the previous recommendation to obtain an MRI with gadolinium. I confirmed that this is being ordered. The patient was hesitant because of her one kidney, on the other hand her BUN, creatinine and GFR are normal. Therefore, I do not see a problem. I explained to her, there is certainly a small risk of significant kidney injury with gadolinium, but this is very, very small and again missing a bacterial diskitis/osteomyelitis could be quite dangerous. Therefore, we will proceed and make any further suggestions predicated on the study. Ben Wayne MD
--- NOTE | 2017-12-29 09:19 | CON ---
DATE: 12/28/2017 LOCATION: The patient was seen tonight in room number 365, bed 1. CHIEF COMPLAINT: Neck pain from several weeks. HISTORY OF PRESENT ILLNESS: This is a 57-year-old female who has had a history of cerebrovascular accident at the age of 40, hypothyroidism, and the patient also had recently developed headaches, was diagnosed with cerebral aneurysm, was sent to [place], to be seen by who recommended to watch the aneurysm due to its size and location. The patient had a root canal done approximately 2 months ago and she has been having neck pain. She denies any fevers or any chills. She does have headaches on and off and no chest pain, shortness of breath, or cough. No fevers and no chills. No dysuria or frequency. No rash. No joint pain. PAST MEDICAL HISTORY: Significant for cerebrovascular accident at the age of 40, hypothyroidism, and recent diagnosis of cerebral aneurysm. PAST SURGICAL HISTORY: Significant for hysterectomy and gastric bypass and knee surgery. The patient had a nephrectomy in 2010, at the [facility], she was told to have a nonfunctioning kidney. ALLERGIES: THE PATIENT IS ALLERGIC TO CODEINE AND PENICILLIN. SHE STATES THAT HER MOTHER TOLD THAT SHE HAD A RASH A CHILD AND THE CODEINE CAUSES HER VOMITING. MEDICATIONS AT HOME: Reveals the patient to be on Synthroid, Ciprazole, and Plavix. 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 No foreign travel. Born in [place]. No exposure to any animals. She lives with her and no exposure to tuberculosis. PHYSICAL EXAMINATION VITAL SIGNS: The patient's temperature is 98, blood pressure is 105/50, respiratory rate of 18, and heart rate of 62. HEENT: Examination of HEENT is unremarkable. NECK: Supple. There is tenderness in her neck, however, no erythema. It is subtle. LUNGS: Clear. HEART: No murmurs are appreciated. ABDOMEN: Soft and nontender. LABORATORY DATA: Reveals a white count of 6.3 and hemoglobin of 13. Sedimentation rate is 29, and platelets of 243. Coagulation is noted. Blood gases are reviewed. Chemistries are normal. The patient's C-reactive protein is 7.33. Procalcitonin is less than 0.05. Serology is negative for flu. Blood culture is negative x24 hours. The patient had an MRI of the spine, we will review of the cervical spine. ASSESSMENT AND PLAN: This is a 57-year-old female with cerebrovascular accident by history at the age of 40, hypothyroidism, recent diagnosis of cerebral aneurysm, now with cervical questionable rule out cervical diskitis by magnetic resonance imaging. At this time, the patient has no fever and no chills. She did have a root canal job concerned about endocarditis, although the blood cultures are negative. The patient has no fevers and no murmurs. We will request Dr. Tone Hanna to review the MRI of the cervical spine, and if there is any possibility of biopsy of the cervical bone, we will hold off any antibiotics at this time. Pending blood culture results and echo results, repeating sedimentation rate, C-reactive protein, HIV, FTA, RPR, and QuantiFERON Gold. We will hold off the antibiotics, pending initial workup results. We will make further recommendations pending initial workup and Dr. Tone Hanna's input regarding magnetic resonance imaging findings and possibility of invasive radiology biopsy for cultures for special stains and routine Gram-stain, cultures, AFB, fungal stains and cultures in addition to routine pathology. Fletcher Moraes MD
[2017-12-29 09:24] VITALS: BP 119/73; PULSE 64; TEMP 97.6; O2SAT 97
--- NOTE | 2017-12-29 11:26 | CP.PCM.PN ---
Subjective - Date & Time of Evaluation Date of Evaluation: 12/29/17 Time of Evaluation: 11:23 - Subjective Subjective: reviewed MRI with contrast Diskitis highly equivocal Would not operated based on current information Suggest repeating MRI in about 3 weeks, unless clinically becomes symptomatic If you feel biopsy is necessary at this time suggest calling interventional radiology Objective - Vital Signs/Intake and Output Vital Signs (last 24 hours): Temp Pulse Resp BP Pulse Ox 97.6 F 64 20 119/73 97 12/29/17 09:24 12/29/17 09:24 12/29/17 09:24 12/29/17 09:24 12/29/17 09:24 Intake and Output: 12/29/17 12/29/17 06:59 18:59 Intake Total 1080 Balance 1080 - Medications Medications: Current Medications Acetaminophen (Tylenol 325mg Tab) 650 mg PO Q6H PRN PRN Reason: Fever >100.4 F Last Admin: 12/29/17 06:28 Dose: 650 mg Clopidogrel Bisulfate (Plavix) 75 mg PO DAILY [facility] Last Admin: 12/29/17 09:47 Dose: 75 mg Sodium Chloride (Sodium Chloride 0.9%) 1,000 mls @ 100 mls/hr IV .Q10H [facility] Last Admin: 12/29/17 06:30 Dose: 100 mls/hr Levothyroxine Sodium (Synthroid) 50 mcg PO ACB [facility] Last Admin: 12/29/17 06:30 Dose: 50 mcg Meloxicam (Mobic) 15 mg PO DAILY [facility] Last Admin: 12/29/17 09:47 Dose: 15 mg Pantoprazole Sodium (Protonix Ec Tab) 40 mg PO 0630 [facility] Last Admin: 12/28/17 05:49 Dose: Not Given - Labs Labs: PT 11.5 SECONDS (9.4-12.5) 12/27/17 12:40 INR 1.00 (0.93-1.08) 12/27/17 12:40 APTT 33.9 Seconds (25.1-36.5) 12/27/17 12:40
[2017-12-29] MEDS ORDERED: levoFLOXacin 500 MG TAB PO STA (12:28)
[2017-12-29] MEDS ORDERED: Promethazine DM 6.25 mg-15 mg/5 ml Syrup PO STA (12:29)
--- NOTE | 2017-12-29 17:57 | CARD ---
APPROVED REPORT EXAM: Two-dimensional and M-mode echocardiogram with Doppler and color Doppler. INDICATION Infection:Rule out subacute bacterial endocarditis 2D DIMENSIONS Left Atrium (2D)4.5 (1.6-4.0cm)IVSd0.9 (0.7-1.1cm) LVDd4.3 (3.9-5.9cm)PWd0.8 (0.7-1.1cm) LVDs2.6 (2.5-4.0cm)FS (%) 38.6 % LVEF (%)69.3 (>50%) M-Mode DIMENSIONS Aortic Root2.90 (2.2-3.7cm)Aortic Cusp Exc.1.80 (1.5-2.0cm) Aortic Valve AoV Peak Wqrmnnbe413.0cm/Coco Peak GR.9mmHg Mitral Valve MV E Bnmclcyu55.4cm/sMV A Zpkgkxvc46.4cm/sE/A ratio1.0 TDI Lateral E' Peak V9.65cm/sMedial E' Peak V7.51cm/sE/Lateral E'8.8 E/Medial E'11.4 Pulmonary Valve PV Peak Bfdfozij10.9cm/sPV Peak Grad.3mmHg Tricuspid Valve TR Peak [id number]/sRAP [id number] Peak Gr.32mmHg [id number] LEFT VENTRICLE The left ventricle is normal size. There is normal left ventricular wall thickness. The left ventricular function is normal.EF-65-70% There is normal LV segmental wall motion. The left ventricular diastolic function is normal. No left ventricle thrombus noted on this study. There is no ventricular septal defect visualized. There is no left ventricular aneurysm. There is no mass noted in the left ventricle. RIGHT VENTRICLE The right ventricle is normal size. There is normal right ventricular wall thickness. The right ventricular systolic function is normal. ATRIA The left atrium size is normal. The right atrium size is normal. The interatrial septum is intact with no evidence for an atrial septal defect. AORTIC VALVE The aortic valve is thickened but opens well. There is trace aortic regurgitation. There is no aortic valvular stenosis. There is no aortic valvular vegetation. MITRAL VALVE The mitral valve is thickened but opens well. Mitral regurgitation is mild. There is no mitral valve stenosis. There is no evidence of mitral valve prolapse. TRICUSPID VALVE The tricuspid valve leaflets are thickened , but open well. There is mild tricuspid regurgitation.RVSP-42 mmof Hg. There is no tricuspid valve stenosis. There is no tricuspid valve prolapse or vegetation. PULMONIC VALVE The pulmonary valve is normal in structure. There is no pulmonic valvular regurgitation. There is no pulmonic valvular stenosis. GREAT VESSELS The aortic root is normal in size. The ascending aorta is normal in size. The pulmonary artery is normal. The IVC is normal in size and collapses >50% with inspiration. PERICARDIAL EFFUSION There is no pleural effusion. There is a trace pericardial effusion. <Conclusion> Normal Chamber size. Ef-65-70% There is trace aortic regurgitation. Mitral regurgitation is mild. There is mild tricuspid regurgitation.RVSP-42 mmof Hg. There is a trace pericardial effusion. No Vegetation noted.
--- NOTE | 2017-12-30 06:11 | DS ---
SUBJECTIVE: Patient is 57 years old, seen and examined. States her neck pain is much better. Complained of cough and congestion. No history of fever. Awaiting the MRI report. PHYSICAL EXAMINATION VITAL SIGNS: She is afebrile. Pulse 64, respirations 20, blood pressure 119/73. LUNGS: Bilateral fair airflow. No rhonchi or crackle. HEART: S1 and S2 audible. ABDOMEN: Soft, nontender. No rebound. No guarding. NEUROLOGIC: She is awake, alert, oriented. Able to communicate. Ambulatory. LABORATORY DATA: ESR was 29 yesterday, today it is 20. Her C-reactive protein is 4.08. Procalcitonin is 0.05. Echocardiogram is pending. Blood cultures are negative. Patient's new MRI of cervical spine noted, that was done last night shows edema within the bone marrow adjacent to the endplate at C6 and C5 level and minimal increased signal intensity within the disk as well. These are more of reactive degenerative disk disease; however, osteomyelitis cannot be ruled out. So, patient states she is feeling a lot better since she has been started on NSAID. She was given option to have aspiration of the fluid done and sent for biopsy. PLAN: Patient is going to be discharged home today. She will be given Levaquin 500 daily for a few days, Claritin 10 mg daily and Phenergan DM. She is given Mobic, she will take for a week persistently and then, intermittently and she is advised to have MRI done in a few weeks. Sunni Reddy MD
[2017-12-31 06:27] LABS: TB ANTIGEN MINUS NIL <0.00 IU/mL
== END 2017-12-29 17:23 | disposition home or self-care (01) | DRG 552 ==
LOC: ED 11:59 → ERH 19:00 → 3RNO 20:42
PROVIDERS: ADMIT Internal Medicine; ATTEND Internal Medicine
DX: M50.323 Other cervical disc degeneration at C6-C7 level (principal); I67.1 Cerebral aneurysm, nonruptured; E03.9 Hypothyroidism, unspecified; K21.9 Gastro-esophageal reflux disease without esophagitis; Z86.73 Personal history of transient ischemic attack (TIA), and cerebral infarction without residual deficits; Z90.710 Acquired absence of both cervix and uterus; Z90.5 Acquired absence of kidney; Z98.84 Bariatric surgery status; Z90.49 Acquired absence of other specified parts of digestive tract